=== PATIENT | female | born 2000 | race Caucasian/White ===

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

== ENCOUNTER 2018-05-09 21:08 | Emergency (ER) | payer OTHER ==
[2018-05-09 22:13] LABS: Urine Blood 2+ (NEG); Urine Glucose NEGATIVE (NEG); Urine Protein NEGATIVE (NEG); Urine Specific Gravity >1.030 (1.005-1.030); Urine pH 5.5 (5.0-7.0)
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
== END 2018-05-09 23:09 | disposition home or self-care (01) ==
LOC: ER 21:08
DX: S13.4XXA Sprain of ligaments of cervical spine, initial encounter (principal); V49.50XA Passenger injured in collision with unspecified motor vehicles in traffic accident, initial encounter; Z88.3 Allergy status to other anti-infective agents
CPT/HCPCS: 70450; 72125; 81003; 81025; 99284

== ENCOUNTER 2020-02-11 15:16 | Emergency (ER) | payer OTHER, SELFPAY ==
--- OUTSIDE RECORDS SUMMARY | 2020-02-11 15:18 | XMS REPORT | Summary of Care ---
:2000 Author Organization [facility] Address [address] [place] [id number] Care Team Providers Name Role Phone Wilmar Rolle Insurance Hmo Alton Melendrez [facility] Primary Care Provider Reason for Visit Reason Comments Refill Request refill request for norg-ee Encounter Details Date Type Department Care Team Description 01/21/2020 Telephone [facility]- Leandra Melendrez Ref ill Request (refill [facility], [facility] request for norg-ee) [address] [facility] [address], [place] [address] [phone] Allergies Active Allergy Reactions Severity Noted Date Comments Clindamycin Rash 11/07/2017 documented as of this encounter (statuses as of 01/23/2020) Medications Medication Sig Dispensed Refills Start Date End Date Status norgestimate-ethinyl Take 1 tablet by 1 Package 9 01/03/2019 Active estradiol (ORTHO mouth daily. TRI-CYCLEN, 28,) 0.18/0.215/0.25 mg-35 mcg (28) tabletIndications: Encounter for other contraceptive management Hospital, Clinic, or Ordered Dose Route Frequency Start Date End D ate Status Other Facility Administered Medication doxycycline (Vibramycin) 200 mg Oral PRE-PROCEDURE 11/21/2017 Active capsule 200 mg ONCE medroxyPROGESTERone 150 mg IM A0LAESMI 11/30/2017 Active (DEPO-PROVERA) injection 150 mg documented as of this encounter (statuses as of 01/23/2020) Active Problems Problem Noted Date Well woman exam 10/17/2018 Contraceptive management 10/17/2018 History of scoliosis 11/07/2017 documented as of this encounter (statuses as of 01/23/2020) Resolved Problems Problem Noted Date Resolved Date Status post dilatation and curettage 02/14/201806/2018 Encounter for surveillance of injectable contraceptive 02/1410/17/2018 Routine follow-up 12/05/2017 10/17/2018 Molar 11/21/2017 10/17/2018 Overview: Added automatically from request for lucinda de león [id number] Missed 11/20/2017 10/17/2018 UTI in 11/10/2017 10/17/2018 Overview: GERMAINE at next visit Rubella non-immune status, antepartum 11/08/2017 Overview: Address pp History of miscarriage 11/07/2017 12/05/2017 Supervision of high risk , antepartum 11/07/2017 12/05/2017 Vaginal bleeding before 22 weeks gestation 11/07/2017 12/05/2017 Irregular heart beat 06/19/2015 12/05/2017 Overview: 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 documented as of this encounter (statuses as of 01/23/2020) Immunizations Name Administration Dates Next Due Influenza Virus Vaccine Quad IM 3+ YRS 11/07/2017 documented as of this encounter Social History Tobacco Use Types Packs/Day Years Used Date Never Smoker Smokeless Tobacco: Never Used Alcohol Use Drinks/Week oz/Week Comments No Sex Assigned at Date Recorded Not on file documented as of this encounter Last Filed Vital Signs Not on filedocumented in this encounter Miscellaneous Notes Telephone Encounter - Hafsa Vargas LVN - 01/23/2020 10:21 AM CDTAlexstephen Cantrell is a 19 year old female 3rd attempt to call patient, no answer, vm full, will await patient's call. Telephone Encounter - Hafsa Vargas LVN - 01/22/2020 4:24 PM CDTAlexstephen Cantrell is a 19 year old female 2nd attempt to call patient, no answer, left vm. elephone Encounter - Geneva Grace RN - 01/22/2020 9:27 AM CDTCalled patient, no answer. No vm box set up. Can not refill ocp, patient needs wwe. GENEVA GRACE RN 01/22/2020 9:27 AM Telephone Encounter - Rebeka Helton - 01/21/2020 1:10 PM CDTRefill norg-ee 0.18-0.215 Last filled 12/15/19 documented in this encounter Plan of Treatment Health Maintenance Due Date Last Done Comments MENINGOCOCCAL B VACCINES (1 of 2008 2 - Risk Bexsero 2-dose series) HPV VACCINES (1 - 2-dose 2009 series) Depression Screening 2010 WELL CARE VISIT: 12-21 YEARS 2010 (yearly) DTaP,Tdap,and Td Vaccines (1 - 2017 Tdap) PAP SMEAR 10/11/2019 CHLAMYDIA SCREENING 10/18/2019 10/17/2018, 11/07/2017, 11/25/2010 INFLUENZA VACCINE (#1) 2020 11/07/2017 MENINGOCOCCAL VACCINE Aged Out No longer eligible based on patient's age to complete this to pic PNEUMOCOCCAL 0-64 YEARS Aged Out No longe r eligible based COMBINED SERIES on patient's age to complete this to pic documented as of this encounter Results Not on filedocumented in this encounter Insurance Payer Benefit Plan Subscriber ID Effective Phone Address Typ e / Group Dates [facility] [id number] 2018-Prese [phone] Medicaid WOMEN nt [address] [place] [address] documented as of this encounter Advance Directives Name Relationship Healthcare Agent Communication Relationship Peyman Arcos Significant Other Health Care Agent
--- OUTSIDE RECORDS SUMMARY | 2020-02-11 15:18 | XMS REPORT | Continuity of Care Document ---
:2000 Author Organization [facility] t Address [address] [place] [address] Care Team Providers Name Role Phone Alton Avendano Attending Clinician Problems This patient has no known problems. Allergies, Adverse Reactions, Alerts This patient has no known allergies or adverse reactions. Medications This patient has no known medications. Procedures This patient has no known procedures. Encounters Start End Encounter Admission Attending Care Care Encounter Source Date/Time Date/Time Type Type Clinicians Facility Department ID 2020-01-21 2020-01-21 Telephone MAHIN Melendrez [id number] 00:00:00 00:00:00 Leandra Dang B2B SALES CONSULTANT [id number] [facility] [id number] MATERNAL [id number] & CHILD [address] [place] [address] Results This patient has no known results.
[2020-02-11] MEDS ORDERED: ACETAMINOPHEN 325 MG TABLET ONE (15:49)
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
--- NOTE | 2020-02-11 16:27 | EDPHYS ---
Physician Documentation [facility] Name: Sreekanth Cantrell Age: 19 yrs Sex: Female : 2000 Arrival Date: 02/11/2020 Time: 15:19 Bed 20 Private MD: ED Physician Scott Pinto HPI: 02/10 15:35 This 19 yrs old Female presents to ER via Unassigned with complaints of kb Headache. 15:35 The patient complains of pain to the forehead. The patient describes the headache as kb constant. Onset: The symptoms/episode began/occurred 2 hour(s) ago. Associated signs and symptoms: Pertinent positives: nausea, blurred vision. Severity of symptoms: At its worst the pain was moderate, in the emergency department the pain has improved, moderately. Headache History: The patient has had previous headaches and this one is similar to previous episodes. The symptoms are alleviated by nothing. the symptoms are aggravated by nothing. The patient has experienced similar episodes in the past. The patient has not recently seen a physician. Pt reports she had some blurred vision on right eye about 2 hours ago that resolved, but left a headache. States she has a mild headache now. Reports she has had several of these same headaches in the past, but never got it checked out. Normally relieved with tylenol or she "just waits it out and it goes away." States she came today because she was at work when it started and her boss told her she had to get it checked. . Historical: - Allergies: 15:35 Clindamycin; ll1 - PMHx: 15:35 Heart Murmur; scoliosis; ll1 - PSHx: 15:35 "molar "; ll1 - Immunization history:: Flu vaccine is not up to date. - Social history:: Smoking status: Patient denies any tobacco usage or history of. Patient/guardian denies using alcohol, street drugs. ROS: 15:35 Constitutional: Negative for fever, chills, and weight loss, Cardiovascular: Negative kb for chest pain, palpitations, and edema, Respiratory: Negative for shortness of breath, cough, wheezing, and pleuritic chest pain, Abdomen/GI: Negative for abdominal pain, vomiting, diarrhea, and constipation. +nausea Back: Negative for injury and pain, MS/Extremity: Negative for injury and deformity, Skin: Negative for injury, rash, and discoloration. 15:35 Neuro: Positive for headache. 15:37 Eyes: Positive for blurry vision. kb Exam: 15:35 Constitutional: This is a well developed, well nourished patient who is awake, alert, kb and in no acute distress. Head/Face: Normocephalic, atraumatic. Eyes: Pupils equal round and reactive to light, extra-ocular motions intact. Lids and lashes normal. Conjunctiva and sclera are non-icteric and not injected. Cornea within normal limits. Periorbital areas with no swelling, redness, or edema. ENT: Nares patent. No nasal discharge, no septal abnormalities noted. Tympanic membranes are normal and external auditory canals are clear. Oropharynx with no redness, swelling, or masses, exudates, or evidence of obstruction, uvula midline. Mucous membranes moist. Neck: Trachea midline, no thyromegaly or masses palpated, and no cervical lymphadenopathy. Supple, full range of motion without nuchal rigidity, or vertebral point tenderness. No Meningismus. Chest/axilla: Normal chest wall appearance and motion. Nontender with no deformity. No lesions are appreciated. Cardiovascular: Regular rate and rhythm with a normal S1 and S2. No gallops, murmurs, or rubs. Normal PMI, no JVD. No pulse deficits. Respiratory: Lungs have equal breath sounds bilaterally, clear to auscultation and percussion. No rales, rhonchi or wheezes noted. No increased work of breathing, no retractions or nasal flaring. Abdomen/GI: Soft, non-tender, with normal bowel sounds. No distension or tympany. No guarding or rebound. No evidence of tenderness throughout. Skin: Warm, dry with normal turgor. Normal color with no rashes, no lesions, and no evidence of cellulitis. MS/ Extremity: Pulses equal, no cyanosis. Neurovascular intact. Full, normal range of motion. Neuro: Awake and alert, GCS 15, oriented to person, place, time, and situation. Cranial nerves II-XII grossly intact. Motor strength 5/5 in all extremities. Sensory grossly intact. Cerebellar exam normal. Normal gait. Vital Signs: 15:34 BP 125 / 86; Pulse 73; Resp 17; Temp 98.7; Pulse Ox 100% ; Pain 4/10; ll1 Adarsh Coma Score: 15:35 Eye Response: spontaneous(4). Verbal Response: oriented(5). Motor Response: obeys kb commands(6). Total: 15. Visual Acuity: 15:56 Left Eye Visual acuity 20/10, ; Right Eye Visual acuity 20/10, ; Both Eyes Visual sv acuity 20/10; With Lenses; MDM: 15:31 Patient medically screened. kb 15:35 Data reviewed: vital signs, nurses notes. Data interpreted: Pulse oximetry: on room air kb is 100 %. Interpretation: normal. 16:26 Counseling: I had a detailed discussion with the patient and/or guardian regarding: the kb historical points, exam findings, and any diagnostic results supporting the discharge/admit diagnosis, radiology results, the need for outpatient follow up, a family practitioner, to return to the emergency department if symptoms worsen or persist or if there are any questions or concerns that arise at home. 16:38 Response to treatment: the patient's symptoms have resolved after treatment. kb 02/10 15:52 Order name: Urine Dipstick--Ancillary (enter results) bd 02/10 15:52 Order name: Urine --Ancillary (enter results) bd 02/10 15:34 Order name: Urine Dipstick-Ancillary (obtain specimen); Complete Time: 15:54 kb 02/10 15:34 Order name: CT Head Brain wo Cont; Complete Time: 16:26 kb 02/10 15:38 Order name: Visual Acuity; Complete Time: 15:57 kb Administered Medications: 15:43 Drug: Tylenol 650 mg Route: PO; sv 15:57 Follow up: Response: No adverse reaction sv Point of Care Testing: Urine : 15:52 hCG Reading: Negative; Control Reading: Positive; jp3 Disposition: 19:46 Co-signature as Attending Physician, Scott Pinto MD I agree with the assessment and perla plan of care. Disposition: 02/11/20 16:27 Discharged to Home. Impression: Headache. - Condition is Stable. - Discharge Instructions: General Headache Without Cause, [id number]. - Medication Reconciliation Form, Thank You Letter, Antibiotic Education, Prescription Opioid Use form. - Follow up: Emergency Department; When: As needed; Reason: Worsening of condition. Follow up: Private Physician; When: 2 - 3 days; Reason: Recheck today's complaints, Continuance of care, Re-evaluation by your physician. Signatures: Dispatcher [employer] Yen Helton, MARIBEL-Alton STUD SETTER-Rosanna Duron, RN RN Scott Meza MD MD cha Lewis, Lynsay RN RN ll1 Corrections: (The following items were deleted from the chart) 16:35 16:27 02/11/2020 16:27 Discharged to Home. Impression: Headache. Condition is Stable. sv Forms are Medication Reconciliation Form, Thank You Letter, Antibiotic Education, Prescription Opioid Use. Follow up: Emergency Department; When: As needed; Reason: Worsening of condition. Follow up: Private Physician; When: 2 - 3 days; Reason: Recheck today's complaints, Continuance of care, Re-evaluation by your physician. kb
--- NOTE | 2020-02-11 16:27 | ER ---
Nurse's Notes [facility] Name: Sreekanth Cantrell Age: 19 yrs Sex: Female : 2000 Arrival Date: 02/11/2020 Time: 15:19 Bed 20 Private MD: Diagnosis: Headache Presentation: 02/10 15:34 Chief complaint: Patient states: Noticed distortion in her right eye field of vision 2 ll1 hour ago that lasted about 40 minutes. States when her sight got back to normal, she has had MCDERMOTT since. Slight nausea earlier. No fever/cough. Coronavirus screen: Client denies travel out of the [place] in the last 14 days. At this time, the client does not indicate any symptoms associated with coronavirus-19. Ebola Screen: Patient denies travel to an Ebola-affected area in the 21 days before illness onset. Initial Sepsis Screen: Does the patient meet any 2 criteria? No. Patient's initial sepsis screen is negative. Risk Assessment: Do you want to hurt yourself or someone else? Patient reports no desire to harm self or others. Onset of symptoms was February 11, 2020. 15:34 Method Of Arrival: Ambulatory ll1 15:34 Acuity: ANGÉLICA 3 ll1 16:33 Initial Sepsis Screen: Does the patient have a suspected source of infection? No. sv Patient's initial sepsis screen is negative. Triage Assessment: 15:42 Headache History: The patient has had previous headaches and this one is similar to sv previous episodes. Historical: - Allergies: 15:35 Clindamycin; ll1 - PMHx: 15:35 Heart Murmur; scoliosis; ll1 - PSHx: 15:35 "molar "; ll1 - Immunization history:: Flu vaccine is not up to date. - Social history:: Smoking status: Patient denies any tobacco usage or history of. Patient/guardian denies using alcohol, street drugs. Screenin:40 Abuse screen: Denies threats or abuse. Denies injuries from another. Nutritional sv screening: No deficits noted. Tuberculosis screening: No symptoms or risk factors identified. Fall Risk None identified. Assessment: 15:42 General: Appears in no apparent distress. comfortable, well groomed, well developed, sv Behavior is calm, cooperative, appropriate for age. Pain: Denies pain. Neuro: Level of Consciousness is awake, alert, obeys commands, Oriented to person, place, time, situation, Moves all extremities. Full function Gait is steady, Speech is normal, Reports headache Denies blurred vision dizziness. Respiratory: Airway is patent Respiratory effort is even, unlabored, Respiratory pattern is regular, symmetrical. Derm: Skin is intact, Skin is pink, warm \\T\\ dry. Musculoskeletal: Range of motion: intact in all extremities. 16:33 Reassessment: Patient appears in no apparent distress at this time. Patient and/or sv family updated on plan of care and expected duration. Pain level reassessed. Patient is alert, oriented x 3, equal unlabored respirations, skin warm/dry/pink. Vital Signs: 15:34 BP 125 / 86; Pulse 73; Resp 17; Temp 98.7; Pulse Ox 100% ; Pain 4/10; ll1 Visual Acuity: 15:56 Left Eye Visual acuity 20/10, ; Right Eye Visual acuity 20/10, ; Both Eyes Visual sv acuity 20/10; With Lenses; [place] Coma Score: 15:35 Eye Response: spontaneous(4). Verbal Response: oriented(5). Motor Response: obeys kb commands(6). Total: 15. ED Course: 15:19 Patient arrived in ED. as 15:31 Yen Cedillo FNP-C is [facility]. kb 15:31 Scott Pinto MD is Attending Physician. kb 15:35 Triage completed. ll1 15:35 Arm band placed on Patient placed in an exam room, on a stretcher. ll1 15:40 Patient has correct armband on for positive identification. Bed in low position. Call sv light in reach. Door closed. Head of bed elevated. 15:41 Rosanna Saha, ISABEL is Primary Nurse. sv 15:[address] via wheelchair. sv 15:46 CT Head Brain wo Cont In Process Unspecified. EDMS 15:[address] from [address]. sv 15:51 Urine collected: clean catch specimen, clear, anabel colored. Patient maintains SpO2 jp3 saturation greater than 95% on room air. 16:33 No provider procedures requiring assistance completed. Patient did not have IV access sv during this emergency room visit. Administered Medications: 15:43 Drug: Tylenol 650 mg Route: PO; sv 15:57 Follow up: Response: No adverse reaction sv Point of Care Testing: Urine : 15:52 hCG Reading: Negative; Control Reading: Positive; jp3 Outcome: 16:27 Discharge ordered by MD. haro 16:33 Discharged to home ambulatory. sv 16:33 Condition: stable 16:33 Discharge instructions given to patient, Instructed on discharge instructions, follow up and referral plans. Demonstrated understanding of instructions, follow-up care. 16:35 Patient left the ED. sv Signatures: Dispatcher [employer] EDAZ Yen Cedillo, FAMILY LIFE EDUCATOR-C FAMILY LIFE EDUCATOR-Rosanna Duron, RN RN Renetta Berry Jacob jp3 Any Mccray RN RN ll1 Corrections: (The following items were deleted from the chart) 16:35 15:42 Neuro: Level of Consciousness is awake, alert, obeys commands, Oriented to sv person, place, time, situation, Moves all extremities. Full function Gait is steady, Speech is normal, Denies blurred vision dizziness, sv
[2020-02-11 16:36] LABS: Urine Blood 2+ (NEG); Urine Glucose NEGATIVE (NEG); Urine Protein NEGATIVE (NEG); Urine Specific Gravity >1.030 (1.005-1.030); Urine pH 6.5 (5.0-7.0)
[2020-02-15 14:57] VITALS: BP 125/86; TEMP 98.7; O2SAT 100
== END 2020-02-11 16:35 | disposition home or self-care (01) ==
LOC: ER 15:16
DX: R51 Headache (principal); Z88.3 Allergy status to other anti-infective agents
CPT/HCPCS: 70450; 81003; 81025; 99285